=== PATIENT | female | born 1985 | race American Indian/Alaskan Native ===

== ENCOUNTER 2020-08-27 03:21 | Inpatient (IN) | payer OTHER, MEDICAID ==
[2020-08-27] MEDS ORDERED: AMPICILLIN/NS 2 GM/100 ML 2 GM/100 ML BAG IV ONE (03:38)
[2020-08-27] MEDS ORDERED: NALOXONE 0.4 MG/1 ML INJ IV PRN (03:38)
[2020-08-27] MEDS ORDERED: ePHEDrine SULFATE 50 MG/1 ML INJ IV PRN (03:38)
[2020-08-27] MEDS ORDERED: METHYLERGONOVINE MALEATE 0.2 MG/ML VIAL IM PRN (03:38)
[2020-08-27] MEDS ORDERED: PROMETHAZINE 25 MG TAB PO PRN ×2 (03:38→04:47)
[2020-08-27] MEDS ORDERED: TERBUTALINE 1 MG/1 ML INJ SUB-Q PRN (03:38)
[2020-08-27] MEDS ORDERED: LOPERAMIDE 2 MG CAP PO PRN (03:38)
[2020-08-27] MEDS ORDERED: MINERAL OIL 30 ML ORAL LIQD PO PRN (03:38)
[2020-08-27] MEDS ORDERED: OXYTOCIN 10 UNIT/1 ML INJ IM PRN (03:38)
[2020-08-27] MEDS ORDERED: fentaNYL 100 MCG/2 ML INJ IV PRN (03:38)
[2020-08-27] MEDS ORDERED: ACETAMINOPHEN 325 MG TAB PO PRN (03:38)
[2020-08-27] MEDS ORDERED: LIDOCAINE (2%) 20 MG/1 ML VIAL 20 ML MDV INFILTRATI ONE (03:38)
[2020-08-27] MEDS ORDERED: ONDANSETRON 4 MG/2 ML INJ IV PRN ×2 (03:38→04:47)
[2020-08-27] MEDS ORDERED: CARBOPROST TROMETHAMINE 250 MCG/1 ML INJ IM PRN (03:38)
[2020-08-27] MEDS ORDERED: LACTATED RINGERS 1,000 ML IV SCH (03:45)
--- NOTE | 2020-08-27 03:48 | History and Physical Report ---
History of Present Illness Date of examination: 08/27/20 (Contractions) Date of admission: 08/27/2020 Chief complaint: I've been having contractions. History of present illness: Pt states that her contractions started at midnight and have progressively gotten stronger. Denies LOF, vaginal bleeding. EDC Confirmation: 08/31/2020 Gestational Age: 39.3 wks on admission. Past History : 2 Term Births: 0 Premature Births: 1 Living Children: 1 Para: 1 Mult. Births: 0 Prev : 0 Prev. attempt? 0 Aborta: 0 Elect. Ab: 0 Spont. Ab: 0 Ectopics: 0 # 1 Delivery date: 05/23/2018 Weeks Gestation: 36.5 Delivery type: Vaginal Anesthesia type: epidural Delivery location: [facility] Sex: female weight: 7.81 Comments: labor, rupture of membranes +GBS Risk Factors: Smoked Tobacco Use: Never smoker Smokeless Tobacco Use: Never Passive smoke exposure: no Drug use: no HIV high-risk behavior: no Alcohol use: yes Exercise: no Seatbelt use: 100 % Past Medical History: Reviewed history from 07/28/2017 and no changes required: Negative Past Medical History Past Surgical History: Reviewed history from 07/28/2017 and no changes required: negative Negative Past Surgical History Past Medical History Abnormal PAP: negative, No MITUL Exposure: negative Infertility: negative Uterine Anomaly: negative Uterine Surgery (not C/S): negative Other Gynecologic Problems: negative Social Hx: Patient is occ etoh, no tobacco, 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 Infection History Hx of STD: none HIV Risk Eval: no Hepatitis B Risk Eval: low risk Personal hx. of genital herpes: no Partner hx. of genital herpes: no Rash, Viral, or Febrile illness since last LMP? no Genetic History ADVANCED MATERNAL AGE Congenital Heart Defect: Mom: no Dad: no Rosibel Disease: Mom: no Dad: no Thalassemia Mom: no Dad: no Neural Tube Defect Mom: no Dad: no Down's Syndrome Mom: no Dad: no Nadir-Sachs Mom: no Dad: no Sickle Cell Disease/Trait Mom: yes Dad: no Hemophilia Mom: no Dad: no Muscular Dystrophy Mom: no Dad: no Cystic Fibrosis Mom: no Dad: no Samir Chorea Mom: no Dad: no Mental Retardation Mom: no Dad: no Fragile X Mom: no Dad: no Other Genetic/Chromosomal Disorder Mom: no Dad: no Child w/other defect Mom: no Dad: no Enviromental Exposures Xray Exposure: no Medication, drug, or alcohol use since LMP: no Chemical/Other Exposure: no Exposure to Cat Liter: no Hx of Parvovirus (Fifth Disease): no Occupational Exposure to Children: none Current Allergies: * SEAFOOD (Critical) Past History Past Medical History: no pertinent history Past Surgical History: no surgical history Family/Genetic History: none Social history: no significant social history - Obstetrical History Expected Date of Delivery: 08/31/20 Actual Gestation: 39 Week(s) 3 Day(s) : 2 Para: 1 Hx # Term Pregnancies: 0 Number of Pregnancies: 1 Spontaneous Abortions: 0 Induced : 0 Number of Living Children: 1 Medications and Allergies Allergies Allergy/AdvReac Type Severity Reaction Status Date / Time No Known Allergies Allergy Verified 05/23/18 08:56 Home Medications Medication Instructions Recorded Confirmed Last Taken Type Vit,Calc76/Iron/Folic 1 tab PO DAILY 05/23/18 08/07/20 1 Day Ago Hi story [Pnv 29-1 Tablet] ~08/06/20 Aspirin [Adult Aspirin] 1 tab PO DAILY 08/07/20 08/07/20 1 Day Ago History ~08/06/20 Docusate Sodium [Colace CAP] 1 tab PO DAILY 08/07/20 08/07/20 1 Day Ago History ~08/06/20 Ferrous Sulfate 1 tab PO DAILY 08/07/20 08/07/20 1 Day Ago History ~08/06/20 Active Meds: Active Medications Acetaminophen (Acetaminophen 325 Mg Tab) 650 mg PO Q4H PRN PRN Reason: Pain, Mild (1-3) Carboprost Tromethamine (Carboprost Tromethamine 250 Mcg/1 Ml Inj) 250 mcg IM ONCE PRN PRN Reason: Uterine Bleeding Ephedrine Sulfate (Ephedrine Sulfate 50 Mg/1 Ml Inj) 10 mg IV Q2M PRN PRN Reason: Hypotension Fentanyl (Fentanyl 100 Mcg/2 Ml Inj) 100 mcg IV Q2H PRN PRN Reason: Pain,Severe (7-10) LABOR PAIN Oxytocin/Sodium Chloride (Pitocin/Ns 30 Unit/500ml) 30 units in 500 mls @ 2 mls/hr IV TITR CAMERON; Protocol Lactated Ringer's (Lactated Ringers) 1,000 mls @ 125 mls/hr IV DIRECT CAMERON Oxytocin/Sodium Chloride (Pitocin/Ns 30 Unit/500ml) 30 units in 500 mls @ 40 mls/hr IV TITR CAMERON; Protocol Ampicillin Sodium (Ampicillin/Ns 2 Gm/100 Ml) 2 gm in 100 mls @ 100 mls/hr IV ONCE ONE; Protocol Stop: 08/27/20 04:37 Lidocaine (Lidocaine (2%) 20 Mg/1 Ml Vial 20 Ml Mdv) 20 ml INFILTRATI ONCE ONE Stop: 08/27/20 03:39 Loperamide HCl (Loperamide 2 Mg Cap) 2 mg PO ONCE PRN PRN Reason: give with Hemabate Methylergonovine Maleate (Methylergonovine Maleate 0.2 Mg/Ml Vial) 0.2 mg IM ONCE PRN PRN Reason: Uterine Bleeding Mineral Oil (Mineral Oil 30 Ml Oral Liqd) 30 ml PO QHS PRN PRN Reason: Constipation Naloxone HCl (Naloxone 0.4 Mg/1 Ml Inj) 0.1 mg IV Q2MIN PRN PRN Reason: Res Rate </= 8 or 02 SAT < 92% Ondansetron HCl (Ondansetron 4 Mg/2 Ml Inj) 4 mg IV Q8H PRN PRN Reason: Nausea And Vomiting Oxytocin (Oxytocin 10 Unit/1 Ml Inj) 10 unit IM ONCE PRN PRN Reason: Uterine Bleeding Promethazine HCl (Promethazine 25 Mg Tab) 25 mg PO Q6H PRN PRN Reason: Nausea And Vomiting Terbutaline Sulfate (Terbutaline 1 Mg/1 Ml Inj) 0.25 mg SUB-Q ONCE PRN PRN Reason: Hyperstimulation/Hypertonicity Review of Systems All systems: negative - Vital Signs Vital signs: Vital Signs Temp Pulse Resp BP 98.6 F 76 20 125/76 08/27/20 03:36 08/27/20 03:36 08/27/20 03:36 08/27/20 03:36 Temp Pulse Resp BP Pulse Ox 98.6 F 76 20 125/76 08/27/20 03:36 08/27/20 03:36 08/27/20 03:36 08/27/20 03:36 - Physical Exam Breasts: Positive: deferred Cardiovascular: Regular rate Lungs: Positive: Normal air movement Abdomen: Positive: normal appearance, soft Genitourinary (Female): Positive: normal external genitalia, normal perenium Vulva: both: normal Vagina: Positive: normal moisture Uterus: Positive: normal size Extremities: Positive: normal - Obstetrical FHR: category 1 Cervical Dilatation: 9 (BBOW felt) Cervical Effacement Percentage: 100 station: 0 Uterine Contraction Pattern: Regular Uterine Tone Measurement Phase: Resting Uterine Contraction Intensity: Moderate Results Result Diagrams: 08/27/20 03:50 GBS POSITIVE HBsAg Screen Negative Negative *1 RPR Non Reactive Non Reactive *2 Rubella Antibodies, IgG 3.73 index Immune >0.99 *3 Non-immune <0.90 Equivocal 0.90 - 0.99 Immune >0.99 ABO Grouping O *4 Rh Factor Positive *5 Antibody Screen Negative Negative *6 Tests: (2) HB Solu + Rflx Frac (060818) Hemoglobin (Hgb) Solubility [A] Positive Negative *31 Tests: (3) Hemoglobin Frac.w/o Solubility (821797) ! Hgb F 0.0 % 0.0-2.0 *32 ! Hgb A [L] 58.8 % 96.4-98.8 *33 ! Hgb S [H] 37.9 % 0.0 *34 ! Hgb C 0.0 % 0.0 *35 ! Hgb A2 [H] 3.3 % 1.8-3.2 *36 ! Hgb Variant <No Reported Value> *37 ! Interpretation HGAS1 *38 Hemoglobin pattern and concentration are consistent with sickle cell trait (heterozygous). Suggest clinical and hematologic correlation. Sickle Trait Interpretation Ranges Hgb A 50.0 - 70.0% Hgb S 30.0 - 45.0% Hgb A2 3.0 - 5.0%* *Hgb A2 values are seen to be increased over normal levels. This increase is typically due to interference from co-eluting Hgb S-subunits with the HPLC method and therefore the Hgb A2 interpretation ranges have been adjusted. Tests: (4) HIV Ag/Ab with Reflex ([id number]) HIV Screen 4th Generation wRfx Non Reactive Non Reactive *39 Tests: (5) HCV Ab w/Rflx to Verification ([id number]) ! HCV Ab <0.1 s/co ratio 0.0-0.9 *40 Tests: (6) Comment: ([id number]) ! Comment: SPRCS *41 Non reactive HCV antibody screen is consistent with no HCV infection, unless recent infection is suspected or other evidence exists to indicate HCV infection. Assessment and Plan A: 34 y.o. @ 39.3 weeks in active labor. Cervical exam 0. - Patient Problems (1) GBS (group B streptococcus) infection Current Visit: Yes Status: Acute Plan to address problem: Antibiotics ordered while in labor. (2) with 39 completed weeks gestation Current Visit: Yes Status: Acute Plan to address problem: Admit to labor and delivery. Initiate IV and draw labs. Start fluid bolus for epidural placement. Anticipate .
[2020-08-27] MEDS ORDERED: OXYTOCIN DRIP 30 UNITS/500 ML BAG IV SCH ×3 (04:00→05:00)
[2020-08-27 04:09] LABS: Hematocrit 33.4 % (30.3-42.9); Hemoglobin 11.4 gm/dl (10.1-14.3); Mean Corpuscular HGB Conc 34 % (30-34); Mean Corpuscular Volume 83 fl (79-97); Platelet Count 329 K/mm3 (140-440); Red Blood Count 4.04 M/mm3 (3.65-5.03); Red Cell Distribution Width 18.9 % (13.2-15.2)
--- NOTE | 2020-08-27 04:45 | Procedure Note ---
OB Delivery Note - Delivery Date of Delivery: 08/27/20 [employer] Developer: VALENTIN VILLASEÑOR (Neisha Khanna RN) Estimated blood loss: 200cc - Vaginal Delivery presentation: vertex Delivery position: OA Intrapartum events: none Delivery induction: none Delivery monitor: external FHT, external uterine Route of delivery: Delivery placenta: spontaneous Episiotomy: none Delivery laceration: none Anesthesia: none Delivery comments: Male delivered over intact perineum. Baby to mom's abdomen. Cord clamped and cut after cessation of pulsation. Placenta delivered spontaneous and intact. EBL 200. Perineum and vagina inspected, abrasion noted, no repair needed. Fundus firm, minimal bleeding noted. Sponges and instruments counted with RN and correct. - A at 1 minute: 8 at 5 minutes: 9 Infant Gender: Male (8lbs 13oz Page)
[2020-08-27] MEDS ORDERED: PROMETHAZINE 25 MG RECT SUPP PR PRN (04:47)
[2020-08-27] MEDS ORDERED: diphenhydrAMINE 25 MG CAP PO PRN (04:47)
[2020-08-27] MEDS ORDERED: LANOLIN/ZINC/DIMETHICONE (LANSINOH) 7 GM TP PRN (04:47)
[2020-08-27] MEDS ORDERED: BENZOCAINE/MENTHOL 20/0.5% TOP SPRAY 56 GM TP PRN (04:47)
[2020-08-27] MEDS ORDERED: WITCH HAZEL/ GLYCERIN PAD TP PRN (04:47)
[2020-08-27] MEDS ORDERED: MAGNESIUM HYDROXIDE (MOM) ORAL LIQD UDC PO PRN (04:47)
[2020-08-27] MEDS ORDERED: ACETAMINOPHEN 500 MG TAB PO PRN (04:52)
[2020-08-27] MEDS: IBUPROFEN 800 MG TAB PO SCH ×3 (06:12→18:28)
--- NOTE | 2020-08-27 06:29 | Event Note ---
Date: 08/27/20 (pt in good spirits "Inlove with her .") Pt preparing for transfer to / in w/c. Advance activity and diet as tolerated
[2020-08-27] MEDS: DOCUSATE SODIUM 100 MG CAP PO SCH (11:08)
[2020-08-27] MEDS: PRENATAL VIT27-FE FUMARATE-FOLIC ACID VIT TAB PO SCH (11:08)
[2020-08-27 15:59] LABS: Hematocrit 29.1 % (30.3-42.9); Hemoglobin 9.9 gm/dl (10.1-14.3)
[2020-08-28] MEDS: IBUPROFEN 800 MG TAB PO SCH ×4 (00:20→17:12)
[2020-08-28] MEDS: DOCUSATE SODIUM 100 MG CAP PO SCH ×2 (00:20→09:56)
[2020-08-28] MEDS ORDERED: DIPHtheria,PERTUSSIS(ACELL),TETANUS VACCINE/PF 0.5 ML VIAL IM ONE (06:00)
[2020-08-28] MEDS: PRENATAL VIT27-FE FUMARATE-FOLIC ACID VIT TAB PO SCH (09:56)
--- NOTE | 2020-08-28 11:22 | Discharge Summary ---
Providers - Providers Date of Admission: 08/27/20 03:38 Date of discharge: 08/28/20 (Pt desires discharge home. ) Attending physician: CHRISTIAN BEASLEY Primary care physician: CHRISTIAN BEASLEY Hospitalization Reason for admission: active labor Delivery: Episiotomy: none Laceration: other (Abrasion to perineum noted. ) Other procedures: none complications: other (GBS positive not treated adequately. ) Discharge diagnosis: IUP at term delivered [place] baby: male Hospital course: S: Pt doing well. Ambulating, voiding, and passing flatus okay. BC: Mirena. O: VSS. I&O's adequate. H/H 9.9/29.1, asymptomatic anemia from delivery. Fundus firm, minimal bleeding noted. A: 34 y.o. s/p @ term. In good condition for discharge home. P: Discharge home with instructions. To schedule son's circumcision appointment in the office in 1 wk. To schedule visit in the office in 4 wks. Condition at discharge: Good Disposition: DC-01 TO HOME OR SELFCARE - Discharge Diagnoses (1) GBS (group B streptococcus) infection Status: Acute (2) with 39 completed weeks gestation Status: Acute Plan - Discharge Medications Prescriptions: Lidocain2.5%/Prilocai2.5% [Emla] 1 applic TP ONCE #1 tube Ibuprofen [Motrin] 800 mg PO Q8HR PRN #20 tablet PRN Reason: Pain, Moderate (4-6) - Provider Discharge Summary Activity: routine, no sex for 6 weeks, no heavy lifting 4 weeks, no strenuous exercise Diet: routine Instructions: routine Additional instructions: [] Smoking cessation referral if applicable(refer to patient education folder for contact #) [] Refer to [facility] Booklet Call your doctor immediately for: * Fever > 100.5 * Heavy vaginal bleeding ( >1 pad per hour) * Severe persistent headache * Shortness of breath * Reddened, hot, painful area to leg or breast * Drainage or odor from incision. * Keep incision clean and dry at all times and follow doctor's instructions regarding bathing/showering Congratulations on your baby boy!! Please schedule your son's circumcision in the office in 1 week. You have been prescribed EMLA cream. Please do not use this cream at home, but bring it with you to your son's circumcision appointment. Please schedule your visit in the office in 4 weeks. If you have any questions or concerns after discharge, please do not hesitate to call the office at [phone]. - Follow up plan Follow up: CHRISTIAN BEASLEY MD [Primary Care Provider] - 7 Days
[2020-08-28 16:44] VITALS: BP 117/64
== END 2020-08-28 16:45 | disposition home or self-care (01) | DRG 807 ==
LOC: TRG 03:21 → APU 03:27 → LD 03:38 → TRG 03:38 → OB 05:58
PROVIDERS: ADMIT Obstetrics & Gynecology; ATTEND Obstetrics & Gynecology
PROC: 10E0XZZ Delivery of Products of Conception, External Approach (ICD-10-PCS; principal; 2020-08-27)
DX: O98.82 Other maternal infectious and parasitic diseases complicating childbirth (principal); Z37.0 Single live birth; Z3A.39 39 weeks gestation of pregnancy; Z20.822 Contact with and (suspected) exposure to COVID-19; B95.1 Streptococcus, group B, as the cause of diseases classified elsewhere
CPT/HCPCS: 36415; 59025; 85014; 85018; 85027; 86592; 86850; 86900; 86901; 96360; 96365; G0378; J0290; J2590; J7120; U0003